=== PATIENT | female | born 1965 | race Caucasian/White ===

== ENCOUNTER 2017-02-07 21:35 | Inpatient (IN) | payer MEDICAID ==
[~2017-02-07] VITALS: Ht 154.9 cm; Wt 80.8 kg
[2017-02-08 00:01] LABS: BASOPHIL % 1.6 % (0-2); PLATELET COUNT 239 x10^3mcL (130-400); RED CELL DISTRIBUTION WIDTH 13.4 % (11.5-14.5)
[2017-02-08 00:14] LABS: CALCIUM 8.9 mg/dL (8.5-10.1); CARBON DIOXIDE 27.4 mmol/L (21-32); CHLORIDE SERUM 104 mmol/L (98-107); CREATININE SERUM 0.9 mg/dL (0.6-1.0); GFR1 > 60 mL/min; GLUCOSE SERUM 111 mg/dL (74-106); POTASSIUM SERUM 4.1 mmol/L (3.5-5.1); SODIUM SERUM 138 mmol/L (136-145)
[2017-02-08 00:16] LABS: MAGNESIUM 2.4 mg/dL (1.8-2.4); PHOSPHOROUS 4.6 mg/dL (2.5-4.9)
[2017-02-08 00:19] LABS: ALBUMIN 3.5 g/dL (3.4-5.0); ALKALINE PHOSPHATASE 112 U/L (46-116); ALT/SGPT 139 U/L (14-59); AST/SGOT 92 U/L (15-37); BILIRUBIN TOTAL 0.3 mg/dL (0.20-1.00); TOTAL PROTEIN, SERUM 7.2 g/dL (6.4-8.2)
[2017-02-08] MEDS ORDERED: PAROXETINE HCL30 MG PO (01:56)
[2017-02-08 03:11] VITALS: BP 136/70
[2017-02-08 04:07] LABS: CHOLESTEROL/HDL RATIO 3.6
[2017-02-08 04:12] LABS: T3 TOTAL 1.52 ng/mL
[2017-02-08 04:21] LABS: FREE T4 1.08 ng/dL (0.76-1.46); FREE THYROXINE INDEX 2.9 ug/dL (1.4-4.5); T4(THYROXINE) 9.2 ug/dL (4.7-13.3)
[2017-02-08 05:18] VITALS: BP 129/48
[2017-02-08 09:48] VITALS: BP 112/42
[2017-02-08 12:59] LABS: microscopic required? NO
[2017-02-08 13:13] LABS: AMPHETAMINE QUAL UR POSITIVE (NEG <=1000)
[2017-02-08 13:20] LABS: UA SPECIFIC GRAVITY 1.015 (1.005-1.035); urine erythrocyte NEGATIVE (NEGATIVE)
[2017-02-08 13:41] VITALS: BP 114/56
[2017-02-08 17:20] VITALS: BP 122/50
[2017-02-08 20:09] VITALS: BP 118/46
[2017-02-09 05:24] VITALS: BP 125/59
[2017-02-09 09:36] VITALS: BP 131/62
[2017-02-09 13:52] VITALS: BP 124/62
[2017-02-09 15:47] VITALS: BP 124/62
== END 2017-02-09 17:45 | disposition home or self-care (01) | DRG 48 ==
LOC: ED 21:35 → DU 02-08 01:37
PROVIDERS: Emergency Medicine; ADMIT Family Medicine
DX: G90.9 Disorder of the autonomic nervous system, unspecified (principal); G92 Toxic encephalopathy; F15.10 Other stimulant abuse, uncomplicated; E11.65 Type 2 diabetes mellitus with hyperglycemia; Z91.14 Patient's other noncompliance with medication regimen; F32.9 Major depressive disorder, single episode, unspecified; E78.5 Hyperlipidemia, unspecified; J45.909 Unspecified asthma, uncomplicated; R74.0 Nonspecific elevation of levels of transaminase and lactic acid dehydrogenase [LDH]; E66.9 Obesity, unspecified; Z68.33 Body mass index [BMI] 33.0-33.9, adult
CPT/HCPCS: 82962; 84439; 90732; J0780; J1200; J7030; Q0092; Q9967

== ENCOUNTER → 2017-05-01 | Outpatient (CLI) | payer MEDICAID ==
[~2017-05-01] MED LIST: PAROXETINE HCL30 MG PO
== END | disposition home or self-care (01) ==
LOC: RD 09:56 → US 10:00
PROC: BW40ZZZ Ultrasonography of Abdomen (ICD-10-PCS; principal; 2017-05-01)
DX: K76.89 Other specified diseases of liver (principal)

== ENCOUNTER 2018-03-05 07:26 | Day surgery (SDC) | payer OTHER ==
[~2018-03-05] VITALS: Ht 157.5 cm; Wt 84.4 kg
[2018-03-05 08:09] VITALS: BP 132/72
[2018-03-05 11:22] VITALS: BP 122/88
== END 2018-03-05 11:15 | disposition home or self-care (01) ==
LOC: GI 07:26 → OR 09:00 → GI 09:00
PROVIDERS: Internal Medicine Gastroenterology
PROC: 0DBF8ZZ Excision of Right Large Intestine, Via Natural or Artificial Opening Endoscopic (ICD-10-PCS; principal; 2018-03-05 09:00)
PROC: 0DBN8ZZ Excision of Sigmoid Colon, Via Natural or Artificial Opening Endoscopic (ICD-10-PCS; 2018-03-05 09:00)
DX: Z12.11 Encounter for screening for malignant neoplasm of colon (principal); K57.30 Diverticulosis of large intestine without perforation or abscess without bleeding; K63.5 Polyp of colon; D12.2 Benign neoplasm of ascending colon; K64.8 Other hemorrhoids; Z80.0 Family history of malignant neoplasm of digestive organs
CPT/HCPCS: 45378; J1200; J1610; J2250; J2310; J3010; J3490

== ENCOUNTER 2018-09-03 00:46 | Emergency (ER) | payer OTHER ==
[~2018-09-03] VITALS: Ht 157.5 cm; Wt 82.1 kg
[2018-09-03 00:51] VITALS: Ht 157.5 cm; Wt 82.1 kg
[2018-09-03 01:18] LABS: BASOPHIL % 1.3 % (0-2); PLATELET COUNT 296 x10^3mcL (130-400); RED CELL DISTRIBUTION WIDTH 13.2 % (11.5-14.5)
[2018-09-03 02:04] LABS: CALCIUM 9.2 mg/dL (8.5-10.1); CARBON DIOXIDE 29.1 mmol/L (21-32); CHLORIDE SERUM 102 mmol/L (98-107); GFR1 > 60 mL/min; GLUCOSE SERUM 139 mg/dL (74-106); SODIUM SERUM 138 mmol/L (136-145)
[2018-09-03 02:09] LABS: ALBUMIN 3.8 g/dL (3.4-5.0); ALKALINE PHOSPHATASE 102 U/L (46-116); ALT/SGPT 146 U/L (14-59); AST/SGOT 115 U/L (15-37); BILIRUBIN TOTAL 0.42 mg/dL (0.20-1.00); LIPASE 108 IU/L (73-393); TOTAL PROTEIN, SERUM 8.2 g/dL (6.4-8.2)
[2018-09-03 03:55] LABS: UA SPECIFIC GRAVITY >=1.030 (1.005-1.035); microscopic required? YES; urine erythrocyte 3+ (NEGATIVE)
[2018-09-03 06:56] VITALS: BP 135/69
== END 2018-09-03 06:56 | disposition short-term general hospital (02) ==
LOC: ED 00:46
PROVIDERS: Emergency Medicine
DX: N30.91 Cystitis, unspecified with hematuria (principal); R33.9 Retention of urine, unspecified; J45.909 Unspecified asthma, uncomplicated; Z88.0 Allergy status to penicillin; Z98.890 Other specified postprocedural states
CPT/HCPCS: J2270; J7030; Q9967

== ENCOUNTER 2018-12-20 01:22 | Emergency (ER) | payer OTHER ==
[~2018-12-20] VITALS: Ht 157.5 cm; Wt 81.6 kg
[2018-12-20 01:25] VITALS: Ht 157.5 cm; Wt 81.6 kg
[2018-12-20 02:09] VITALS: BP 137/84
== END 2018-12-20 02:09 | disposition home or self-care (01) ==
LOC: ED 01:22
DX: J40 Bronchitis, not specified as acute or chronic (principal); J06.9 Acute upper respiratory infection, unspecified
CPT/HCPCS: J1885

== ENCOUNTER 2019-03-20 14:27 | Emergency (ER) | payer OTHER ==
[~2019-03-20] VITALS: Ht 157.5 cm; Wt 79.8 kg
[2019-03-20 14:32] VITALS: Ht 157.5 cm; Wt 79.8 kg
[2019-03-20 15:36] LABS: BASOPHIL % 0.6 % (0-2); PLATELET COUNT 249 x10^3mcL (130-400); RED CELL DISTRIBUTION WIDTH 13.3 % (11.5-14.5)
[2019-03-20 15:58] LABS: CALCIUM 8.5 mg/dL (8.5-10.1); CHLORIDE SERUM 104 mmol/L (98-107); CREATININE SERUM 0.8 mg/dL (0.6-1.0); GFR1 > 60 mL/min; GLUCOSE SERUM 100 mg/dL (74-106); POTASSIUM SERUM 3.4 mmol/L (3.5-5.1); SODIUM SERUM 138 mmol/L (136-145)
[2019-03-20 16:03] LABS: ALBUMIN 3.4 g/dL (3.4-5.0); ALKALINE PHOSPHATASE 89 U/L (46-116); ALT/SGPT 102 U/L (14-59); AST/SGOT 59 U/L (15-37); BILIRUBIN TOTAL 0.38 mg/dL (0.20-1.00); TOTAL PROTEIN, SERUM 7.3 g/dL (6.4-8.2)
[2019-03-20 17:42] VITALS: BP 118/85
== END 2019-03-20 17:42 | disposition home or self-care (01) ==
LOC: ED 14:27
PROVIDERS: Emergency Medicine
DX: K12.0 Recurrent oral aphthae (principal); R05 Cough; J45.909 Unspecified asthma, uncomplicated; L51.3 Stevens-Johnson syndrome-toxic epidermal necrolysis overlap syndrome; Z88.0 Allergy status to penicillin
CPT/HCPCS: J2060; J7040